=== PATIENT | female | born 1975 | race Asian ===

== ENCOUNTER 2016-07-25 21:06 | Emergency (ER) | payer BC ==
--- NOTE | 2016-07-25 21:12 | EDM.PDOC ---
ED HPI GENERAL MEDICAL PROBLEM - General Chief Complaint: Abdominal Pain Stated Complaint: PT HAS STOMACH PAINS Time Seen by Provider: 07/25/16 21:12 Source of Information: Reports: Patient - History of Present Illness INITIAL COMMENTS - FREE TEXT/NARRATIVE: HISTORY AND PHYSICAL: History of present illness: [] Patient has pain and discomfort in the left lower quadrant since working in her garden yesterday, discomfort has worsened today she rates 5/10 and is quite uncomfortable. No fever nausea vomiting chills sweats no chest pain shortness breath headache dizziness or palpitation no bowel or urine symptoms Review of systems: As per history of present illness and below otherwise all systems reviewed and negative. Past medical history: As per history of present illness and as reviewed below otherwise noncontributory. Surgical history: As per history of present illness and as reviewed below otherwise noncontributory. Social history: No reported history of drug or alcohol abuse. Family history: As per history of present illness and as reviewed below otherwise noncontributory. Physical exam: HEENT: Atraumatic, normocephalic, pupils reactive, negative for conjunctival pallor or scleral icterus, mucous membranes moist, throat clear, neck supple, nontender, trachea midline. Lungs: Clear to auscultation, breath sounds equal bilaterally, chest nontender. Heart: S1S2, regular, negative for clicks, rubs, or JVD. Abdomen: Soft, nondistended, nontender on right lower cord or in left lower quadrant is tender on deep palpation no guarding or rebound Negative for masses or hepatosplenomegaly. Negative for costovertebral tenderness. Pelvis: Stable nontender. Genitourinary: Deferred. Rectal: Deferred. Extremities: Atraumatic, negative for cords or calf pain. Neurovascular unremarkable. Neuro: Awake, alert, oriented. Cranial nerves II through XII unremarkable. Cerebellum unremarkable. Motor and sensory unremarkable throughout. Exam nonfocal. Diagnostics: [] lab as below The abdomen pelvis with and without contrast Therapeutics: [] Toradol 30 mg IV 1 L normal saline bolus Morphine 2 mg IV [place] 5 per 325 one by mouth every 6 when necessary #30 no refill Impression: [] Abdominal pain Epiploic appendagitis on CT imaging Definitive disposition and diagnosis as appropriate pending reevaluation and review of above. Left Lower Abdominal Pain Score (Numeric/FACES): 10 - Related Data Allergies Allergy/AdvReac Type Severity Reaction Status Date / Time Penicillins Allergy Hives Verified 07/25/16 21:09 Home Meds: Home Meds Albuterol [Ventolin HFA] 1 dose INH ASDIRECTED 03/01/14 [History] Ascorbic Acid [Vitamin C] 1 tab PO DAILY 03/01/14 [History] Past Medical History - Past Health History Medical/Surgical History: Denies Medical/Surgical History Social & Family History - Tobacco Use Smoking Status *Q: Never Smoker Second Hand Smoke Exposure: No - Alcohol Use Days Per Week of Alcohol Use: 0 - Recreational Drug Use Recreational Drug Use: No ED ROS GENERAL - Review of Systems Review Of Systems: ROS reveals no pertinent complaints other than HPI. ED EXAM, GENERAL - Physical Exam Exam: See Below Course - Vital Signs Last Recorded V/S: Last Vital Signs Temp 36.8 C 07/25/16 23:46 Pulse 70 07/25/16 23:46 Resp 18 07/25/16 23:46 BP 92/50 L 07/25/16 23:46 Pulse Ox 99 07/25/16 23:46 - Orders/Labs/Meds Orders: Active Orders 24 hr Category Date Time Status Abdomen Pelvis w wo Cont [CT] Stat Exams 07/25/16 21:15 Taken Labs: Laboratory Tests 07/25/16 07/25/16 07/25/16 Range/Units 20:25 20:25 21:40 WBC 13.11 H (4.0-11.0) K/uL RBC 4.84 (4.30-5.90) M/uL Hgb 13.3 (12.0-16.0) g/dL Hct 40.7 (36.0-46.0) % MCV 84.1 (80.0-98.0) fL MCH 27.5 (27.0-32.0) pg MCHC 32.7 (31.0-37.0) g/dL RDW Std Deviation 43.0 (28.0-62.0) fl RDW Coeff of [place] 14 (11.0-15.0) % Plt Count 261 (150-400) K/uL MPV 10.60 (7.40-12.00) fL Neut % (Auto) 63.2 (48.0-80.0) % Lymph % (Auto) 28.0 (16.0-40.0) % [place] % (Auto) 6.8 (0.0-15.0) % Eos % (Auto) 1.8 (0.0-7.0) % Baso % (Auto) 0.2 (0.0-1.5) % Neut # (Auto) 8.3 H (1.4-5.7) K/uL Lymph # (Auto) 3.7 H (0.6-2.4) K/uL [place] # (Auto) 0.9 H (0.0-0.8) K/uL Eos # (Auto) 0.2 (0.0-0.7) K/uL Baso # (Auto) 0.0 (0.0-0.1) K/uL Nucleated RBC % 0.0 /100WBC Nucleated RBCs # 0 K/uL Sodium 137 (136-146) mmol/L Potassium 3.8 (3.5-5.1) mmol/L Chloride 108 (98-110) mmol/L Carbon Dioxide 20 L (21-31) mmol/L BUN 13 (6.0-23.0) mg/dL Creatinine 0.8 (0.6-1.5) mg/dL Est Cr Clr Drug Dosing 66.47 mL/min Estimated GFR (MDRD) > 60.0 ml/min Glucose 110 (60-110) mg/dL Calcium 9.5 (8.8-10.8) mg/dL Total Bilirubin 0.2 (0.1-1.5) mg/dL AST 24 (5-40) IU/L ALT 22 (8-54) IU/L Alkaline Phosphatase 64 (40-150) Total Protein 7.9 (6.0-8.0) g/dL Albumin 4.2 (3.5-5.0) g/dL Globulin 3.7 H (2.0-3.5) g/dL Albumin/Globulin Ratio 1.1 L (1.3-2.8) Amylase 128 H (10-90) U/L Lipase 36 (7-80) U/L Urine Color Urine Appearance Urine pH (5.0-8.0) Ur Specific [place] (1.001-1.035) Urine Protein (NEGATIVE) mg/dL Urine Glucose (UA) (NEGATIVE) mg/dL Urine Ketones (NEGATIVE) mg/dL Urine Occult Blood (NEGATIVE) Urine Nitrite (NEGATIVE) Urine Bilirubin (NEGATIVE) Urine Urobilinogen (<2.0) EU/dL Ur Leukocyte Esterase (NEGATIVE) Urine RBC (0-2/HPF) Urine WBC (0-5/HPF) Ur Epithelial Cells (NONE-FEW) Urine Bacteria (NEGATIVE) Urine HCG, Qual NEGATIVE (NEGATIVE) 07/25/16 Range/Units 21:40 WBC (4.0-11.0) K/uL RBC (4.30-5.90) M/uL Hgb (12.0-16.0) g/dL Hct (36.0-46.0) % MCV (80.0-98.0) fL MCH (27.0-32.0) pg MCHC (31.0-37.0) g/dL RDW Std Deviation (28.0-62.0) fl RDW Coeff of [place] (11.0-15.0) % Plt Count (150-400) K/uL MPV (7.40-12.00) fL Neut % (Auto) (48.0-80.0) % Lymph % (Auto) (16.0-40.0) % [place] % (Auto) (0.0-15.0) % Eos % (Auto) (0.0-7.0) % Baso % (Auto) (0.0-1.5) % Neut # (Auto) (1.4-5.7) K/uL Lymph # (Auto) (0.6-2.4) K/uL [place] # (Auto) (0.0-0.8) K/uL Eos # (Auto) (0.0-0.7) K/uL Baso # (Auto) (0.0-0.1) K/uL Nucleated RBC % /100WBC Nucleated RBCs # K/uL Sodium (136-146) mmol/L Potassium (3.5-5.1) mmol/L Chloride (98-110) mmol/L Carbon Dioxide (21-31) mmol/L BUN (6.0-23.0) mg/dL Creatinine (0.6-1.5) mg/dL Est Cr Clr Drug Dosing mL/min Estimated GFR (MDRD) ml/min Glucose (60-110) mg/dL Calcium (8.8-10.8) mg/dL Total Bilirubin (0.1-1.5) mg/dL AST (5-40) IU/L ALT (8-54) IU/L Alkaline Phosphatase (40-150) Total Protein (6.0-8.0) g/dL Albumin (3.5-5.0) g/dL Globulin (2.0-3.5) g/dL Albumin/Globulin Ratio (1.3-2.8) Amylase (10-90) U/L Lipase (7-80) U/L Urine Color YELLOW Urine Appearance CLEAR Urine pH 6.5 (5.0-8.0) Ur Specific [place] 1.015 (1.001-1.035) Urine Protein NEGATIVE (NEGATIVE) mg/dL Urine Glucose (UA) NEGATIVE (NEGATIVE) mg/dL Urine Ketones NEGATIVE (NEGATIVE) mg/dL Urine Occult Blood NEGATIVE (NEGATIVE) Urine Nitrite NEGATIVE (NEGATIVE) Urine Bilirubin NEGATIVE (NEGATIVE) Urine Urobilinogen 0.2 (<2.0) EU/dL Ur Leukocyte Esterase NEGATIVE (NEGATIVE) Urine RBC 0-1 (0-2/HPF) Urine WBC 0-1 (0-5/HPF) Ur Epithelial Cells FEW (NONE-FEW) Urine Bacteria FEW (NEGATIVE) Urine HCG, Qual (NEGATIVE) Meds: Medications Discontinued Medications Generic Name Dose Route Start Last Admin Trade Name Alondra PRN Reason Stop Dose Admin Sodium Chloride 1,000 mls @ 999 mls/hr 07/25/16 21:13 07/25/16 21:20 Normal Saline IV 07/25/16 22:13 999 mls/hr STAT ONE Administration Iopamidol 75 ml 07/25/16 21:24 07/25/16 21:25 Isovue Multipack-370 (76%) IVPUSH 07/25/16 21:25 75 ml ONETIME STA Administration Ketorolac Tromethamine 30 mg 07/25/16 21:13 07/25/16 21:21 Toradol IVPUSH 07/25/16 21:14 30 mg ONETIME ONE Administration Morphine Sulfate 2 mg 07/25/16 22:07 07/25/16 22:34 Morphine IV 07/25/16 22:08 2 mg ONETIME ONE Administration Ondansetron HCl 8 mg 07/25/16 21:13 07/25/16 21:21 Zofran IVPUSH 07/25/16 21:14 8 mg ONETIME ONE Administration Departure - Departure Time of Disposition: 23:51 Disposition: Home, Self-Care 01 Condition: good Clinical Impression: Abdominal pain, Epiploic appendagitis - Discharge Information Forms: ED Department Discharge Additional Instructions: Medication as prescribed Return if symptoms persist or worsen Followup with primary care in 2 weeks sooner as needed [facility] - Primary Care [address] [place] [id number] The following information is given to patients seen in the emergency department who are being discharged to home. This information is to outline your options for follow-up care. We provide all patients seen in our emergency department with a follow-up referral. The need for follow-up, as well as the timing and circumstances, are variable depending upon the specifics of your emergency department visit. If you don't have a primary care physician on staff, we will provide you with a referral. We always advise you to contact your personal physician following an emergency department visit to inform them of the circumstance of the visit and for follow-up with them and/or the need for any referrals to a consulting specialist. The emergency department will also refer you to a specialist when appropriate. This referral assures that you have the opportunity for follow-up care with a specialist. All of these measure are taken in an effort to provide you with optimal care, which includes your follow-up. Under all circumstances we always encourage you to contact your private physician who remains a resource for coordinating your care. When calling for follow-up care, please make the office aware that this follow-up is from your recent emergency room visit. If for any reason you are refused follow-up, please contact the [facility] emergency department at and asked to speak to the emergency department charge nurse. - My Orders Last 24 Hours: My Active Orders 07/25/16 21:15 Abdomen Pelvis w wo Cont [CT] Stat - Assessment/Plan Last 24 Hours: My Active Orders 07/25/16 21:15 Abdomen Pelvis w wo Cont [CT] Stat
[2016-07-25] MEDS ORDERED: Sodium Chloride 0.9% 1,000 ML IV ONE (21:13)
[2016-07-25] MEDS ORDERED: Ondansetron 4 MG/2 ML SDV IVPUSH ONE (21:13)
[2016-07-25] MEDS ORDERED: Ketorolac 30 MG/ML SDV IVPUSH ONE (21:13)
[2016-07-25] MEDS ORDERED: Iopamidol 755 MG/ML 500 ML Multipack Bottle IVPUSH STA (21:24)
[2016-07-25 21:55] LABS: CHLORIDE,CL 108 mmol/L (98-110); SODIUM,NA 137 mmol/L (136-146)
[2016-07-25] MEDS ORDERED: Morphine 10 MG/ML Syringe IV ONE (22:07)
[2016-07-25 23:47] VITALS: BP 92/50
--- NOTE | 2016-07-28 14:08 | CT ---
EXAM DATE: 07/25/16 PATIENT'S AGE: 40 Patient: JACY SHEPHERD Facility: [place], [place] Site Site : 1975 Study: CT Abdomen/Pelvis [id number]/[id number] 10:56:47 PM Ordering Physician: MIREYA Final Report: INDICATION: Abdominal pain TECHNIQUE: CT abdomen and pelvis acquired without and with i.v. 100 mL Omnipaque 350. Coronal and sagittal reformats were obtained. Multiple series submitted by tech writer due to technical difficulties. COMPARISON: None FINDINGS: [employer] CT images: Nonobstructive bowel gas pattern. Lower chest: Imaged lung bases are clear. No free air. Imaged inferior heart normal in size. No pericardial effusion. Liver: Unremarkable. Spleen: Unremarkable. Pancreas: Unremarkable. Gallbladder and bile ducts: Unremarkable. Kidneys: Unremarkable. No kidney or ureteral stones and no hydronephrosis seen. Adrenal glands: Unremarkable. GI tract: Loops of bowel are normal in caliber. Appendix not clearly identified in the right lower abdominal quadrant. Faint area of fat stranding adjacent to the descending colon on series 403, image 44, involving the epiploic fat and most suggestive of epiploic appendagitis. Remaining segments of large bowel unremarkable. No abnormal colonic wall thickening. Vascular: Unremarkable. Lymph nodes: Unremarkable. Miscellaneous: Unremarkable. No pneumoperitoneum is seen. No significant ascites is noted. Pelvic Organs: Unremarkable. Bones: Unremarkable for age. IMPRESSION: 1. FINDINGS MOST SUGGESTIVE OF EPIPLOIC APPENDAGITIS INVOLVING THE DESCENDING COLON. NO UNDERLYING DIVERTICULOSIS OR ADJACENT COLONIC WALL THICKENING, MAKING INFLAMMATORY OR INFECTIOUS COLITIS LESS LIKELY ETIOLOGY FOR SOURCE OF ABDOMINAL PAIN. 2. NO RENAL OR URETERAL CALCULI. Dictated by Taurus Simms MD @ 07/25/2016 11:29:27 PM Dictated by: Taurus Simms MD @ 07/25/2016 23:29:43 (Electronic Signature) Report Signed by Proxy. [facility]
== END 2016-07-26 00:12 | disposition home or self-care (01) ==
LOC: MW.ED 21:06
DX: K63.89 Other specified diseases of intestine (principal); Z88.0 Allergy status to penicillin; Z79.899 Other long term (current) drug therapy
CPT/HCPCS: 74178; 80053; 81001; 81025; 82150; 83690; 85025; 96361; 96374; 96375; 99284; J1885; J2270; J2405; J7040; Q9967

== ENCOUNTER 2024-03-08 08:53 | Day surgery (SDC) | payer BC ==
[~2024-03-08 08:53] MED LIST: Sodium Chloride 0.9% 10 ML Syringe FLUSH PRN; Sodium Chloride 0.9% 2.5 ML Syringe FLUSH PRN; Sodium Chloride 0.9% 20 ML SDV IV PRN
[2024-03-08] MEDS: Lactated Ringers 1,000 ML IV SCH (09:27)
[2024-03-08] MEDS ORDERED: propofoL 500 MG/50 ML 50 ML ONE (10:59)
[2024-03-08 13:02] VITALS: BP 100/63; PULSE 63
== END 2024-03-08 12:24 | disposition home or self-care (01) ==
LOC: MW.SDS 08:53
PROVIDERS: ATTEND Surgery
DX: K64.3 Fourth degree hemorrhoids (principal); K60.2 Anal fissure, unspecified; J45.909 Unspecified asthma, uncomplicated; K21.9 Gastro-esophageal reflux disease without esophagitis; Z79.899 Other long term (current) drug therapy; Z88.0 Allergy status to penicillin; Z91.011 Allergy to milk products
CPT/HCPCS: 45378; 81025; J2704; J7120; 00811

== ENCOUNTER 2024-04-07 07:54 | Day surgery (SDC) | payer BC ==
[~2024-04-07 07:54] MED LIST changes: +Albuterol 0.083% 2.5 MG/3 ML Neb Soln NEB PRN; +HYDROmorphone 1 MG/ML Syringe IVPUSH PRN; +Metoclopramide 10 MG/2 ML SDV IVPUSH PRN; +Morphine 2 MG/ML SYRINGE IVPUSH PRN; +Naloxone 0.4 MG/ML SDV IVPUSH PRN; +Ondansetron 4 MG/2 ML SDV IVPUSH PRN; +Phenylephrine HCl In 0.9% NaCl 1 MG/10 ML Syringe IVPUSH PRN; +ceFAZolin 2 GM in Sodium Chloride 0.9% 50 ML IV ONE; +fentaNYL 50 MCG/ML SDV IVPUSH PRN
[2024-04-07] MEDS: Lactated Ringers 1,000 ML IV SCH (08:26)
[2024-04-07] MEDS ORDERED: fentaNYL 100 MCG/2 ML SDV ONE (08:48)
[2024-04-07] MEDS ORDERED: Bupivacaine 0.5% 30 ML SDV ONE (08:55)
[2024-04-07] MEDS ORDERED: Lidocaine 2% 11 ML Jelly Filled Syringe ONE (08:56)
[2024-04-07] MEDS ORDERED: Propofol 200 MG/20 ML SDV ONE (09:16)
[2024-04-07] MEDS ORDERED: Midazolam 1 MG/ML 2 ML SDV ONE (09:34)
[2024-04-07] MEDS ORDERED: Sodium Chloride 0.9% 20 ML ONE (09:38)
[2024-04-07] MEDS ORDERED: cefOXitin 1 GM Vial ONE (09:38)
[2024-04-07 10:46] VITALS: BP 106/57; PULSE 64
== END 2024-04-07 10:55 | disposition home or self-care (01) ==
LOC: MW.SDS 07:54
PROVIDERS: ATTEND Surgery
DX: K64.8 Other hemorrhoids (principal); K64.4 Residual hemorrhoidal skin tags; J45.909 Unspecified asthma, uncomplicated; K21.9 Gastro-esophageal reflux disease without esophagitis; Z79.899 Other long term (current) drug therapy; Z88.0 Allergy status to penicillin; Z91.011 Allergy to milk products
CPT/HCPCS: 46255; 81025; A9270; J0665; J0694; J2250; J2704; J3010; J7120; J3490